=== PATIENT | female | born 1995 | race Hispanic/Latino ===

== ENCOUNTER 2017-06-21 10:54 | Inpatient (IN) | payer OTHER ==
[2017-06-21] MEDS ORDERED: SUBLIMAZE IV PRN (12:06)
[2017-06-21] MEDS ORDERED: ePHEDrine SULFATE IV PRN (12:06)
[2017-06-21] MEDS ORDERED: PHENERGAN PO PRN ×2 (12:06→15:23)
[2017-06-21] MEDS ORDERED: STADOL IV PRN (12:06)
[2017-06-21] MEDS ORDERED: NARCAN 0.4 MG/1 ML IV PRN (12:06)
[2017-06-21] MEDS ORDERED: ZOFRAN IV PRN ×2 (12:06→15:23)
[2017-06-21] MEDS ORDERED: POLYCILLIN/NS 2 GM/100 ML 2 GM/100 ML BAG IV ONE (12:06)
[2017-06-21] MEDS ORDERED: XYLOCAINE 2% INFILTRATI ONE ×2 (12:06→15:11)
--- NOTE | 2017-06-21 12:11 | History and Physical Report ---
History of Present Illness Date of examination: 06/21/17 Date of admission: 06/21/17 11:56 Chief complaint: Labor History of present illness: Pt is a 22yo WF EDC06/20/17; EGA 40 1/7 weeks presents to L&D complaining of RUC's q 2-4mins. She patterson 1 visit at [facility] and that visit was unremarkable. record is available and GBS is unknown. Past History Past Medical History: no pertinent history Past Surgical History: no surgical history Family/Genetic History: none Social history: no significant social history, single - Obstetrical History Expected Date of Delivery: 06/20/17 Actual Gestation: 40 Week(s) 1 Day(s) : 2 Medications and Allergies Allergies Allergy/AdvReac Type Severity Reaction Status Date / Time No Known Allergies Allergy Verified 06/21/17 12:05 Home Medications Medication Instructions Recorded Confirmed Last Taken Type Tablet 1 tab PO DAILY 12/25/15 12/25/15 12/24/15 09:00 History Active Meds: Active Medications Butorphanol Tartrate (Stadol) 2 mg IV Q2H PRN PRN Reason: Pain , Severe (7-10) Ephedrine Sulfate (Ephedrine Sulfate) 10 mg IV Q2M PRN PRN Reason: Hypotension Stop: 06/21/17 12:11 Fentanyl (Sublimaze) 100 mcg IV Q2H PRN PRN Reason: Labor Pain Ampicillin Sodium (Polycillin/Ns 1 Gm/50 Ml) 1 gm in 50 mls @ 100 mls/hr IV Q4HR ALONDRA PRN Reason: Protocol Ampicillin Sodium (Polycillin/Ns 2 Gm/100 Ml) 2 gm in 100 mls @ 100 mls/hr IV ONCE ONE PRN Reason: Protocol Stop: 06/21/17 13:05 Lactated Ringer's (Lactated Ringers) 1,000 mls @ 125 mls/hr IV DIRECT ALONDRA Oxytocin/Sodium Chloride (Pitocin/Ns 20 Unit/1000ml Drip) 20 units in 1,000 mls @ 125 mls/hr IV DIRECT ALONDRA Oxytocin/Sodium Chloride (Pitocin/Ns 30 Unit/500ml) 30 units in 500 mls @ 1 mls /hr IV TITR ALONDRA; 1 MILLIUNITS/MIN PRN Reason: Protocol Lidocaine (Xylocaine 2%) 20 ml INFILTRATI ONCE ONE Stop: 06/21/17 12:07 Mineral Oil (Mineral Oil) 30 ml PO QHS PRN PRN Reason: Constipation Naloxone HCl (Narcan 0.4 Mg/1 Ml) 0.1 mg IV Q2MIN PRN PRN Reason: Res Rate </= 8 or 02 SAT < 92% Ondansetron HCl (Zofran) 4 mg IV Q8H PRN PRN Reason: Nausea And Vomiting Promethazine HCl (Phenergan) 25 mg PO Q6H PRN PRN Reason: Nausea And Vomiting Terbutaline Sulfate (Brethine) 0.25 mg SUB-Q ONCE PRN PRN Reason: Hyperstimulation/Hypertonicity Stop: 06/21/17 12:07 Terbutaline Sulfate (Brethine) 0.25 mg IVP ONCE PRN PRN Reason: Hyperstimulation/Hypertonicity Stop: 06/21/17 12:07 Review of Systems All systems: negative - Vital Signs Vital signs: Vital Signs Pulse Pulse Ox 70 82 L 06/21/17 11:55 06/21/17 11:55 Temp Pulse Resp BP Pulse Ox 97.4 F L 106 H 24 97/59 99 06/21/17 12:05 06/21/17 12:08 06/21/17 12:05 06/21/17 12:05 06/21/17 12:08 - Physical Exam Breasts: Positive: deferred Cardiovascular: Regular rate Lungs: Positive: Clear to auscultation Abdomen: Positive: normal appearance Genitourinary (Female): Positive: normal external genitalia Vagina: Positive: normal moisture Uterus: Positive: enlarged Extremities: Positive: normal - Obstetrical FHR: category 1 Uterine Contraction Monitor Mode: External Cervical Dilatation: 8 Cervical Effacement Percentage: 100 station: -2 Uterine Contraction Pattern: Regular Uterine Tone Measurement Phase: Contraction Uterine Contraction Intensity: Moderate Results Result Diagrams: 06/21/17 12:10 All other labs normal. Assessment and Plan - Patient Problems (1) 40 weeks gestation of Onset Date: 06/21/17 Current Visit: Yes Status: Acute Plan to address problem: A: IUP @ 40 1/7 weeks in labor Limited care Unknown GBS P: Admit to L&D for expectant vaginal delivery IV Ampicillin (2) Limited care in third trimester Onset Date: 06/21/17 Current Visit: Yes Status: Acute
[2017-06-21] MEDS ORDERED: BRETHINE SUB-Q PRN (12:22)
[2017-06-21] MEDS ORDERED: BRETHINE IVP PRN (12:22)
[2017-06-21 12:45] LABS: Hematocrit 33.6 % (30.3-42.9); Hemoglobin 10.5 gm/dl (10.1-14.3); Mean Corpuscular HGB Conc 31 % (30-34); Mean Corpuscular Volume 74 fl (79-97); Platelet Count 182 K/mm3 (140-440); Red Blood Count 4.55 M/mm3 (3.65-5.03); Red Cell Distribution Width 15.8 % (13.2-15.2); White Blood Count 11.7 K/mm3 (4.5-11.0)
[2017-06-21 12:48] LABS: Mean Corpuscular Hemoglobin 23 pg (28-32)
[2017-06-21] MEDS ORDERED: LACTATED RINGERS 1,000 ML IV SCH (13:00)
[2017-06-21] MEDS ORDERED: PITOCin/NS 30 UNIT/500ML 30 UNITS/500 ML BAG IV SCH (13:00)
[2017-06-21] MEDS ORDERED: PITOCin/NS 20 UNIT/1000ML DRIP 20 UNITS/1,000 ML BAG IV SCH ×2 (13:00→16:00)
[2017-06-21] MEDS ORDERED: BENADRYL PO PRN (15:23)
[2017-06-21] MEDS ORDERED: PHENERGAN PR PRN (15:23)
[2017-06-21] MEDS ORDERED: MILK OF MAGNESIA PO PRN (15:23)
[2017-06-21] MEDS ORDERED: TYLENOL PO PRN (15:23)
[2017-06-21] MEDS ORDERED: TUCKS PAD TP PRN (15:23)
[2017-06-21] MEDS ORDERED: LANSINOH TP PRN (15:23)
[2017-06-21] MEDS ORDERED: DULCOLAX PR PRN (15:23)
--- NOTE | 2017-06-21 15:33 | Procedure Note ---
OB Delivery Note - Delivery Date of Delivery: 06/21/17 Surgeon: CHARLY LIZ Estimated blood loss: 200cc - Vaginal Delivery presentation: vertex Delivery position: OA Intrapartum events: none Delivery induction: none Delivery augmentation: rupture of membranes Delivery monitor: external FHT, external uterine Route of delivery: Delivery placenta: spontaneous Delivery cord: nuchal cord (x2), 3 umbilical vessels Episiotomy: none Delivery laceration: 1st degree (perineal) Delivery repair: vicryl Anesthesia: none Delivery comments: Infant delivered OA, and nuchal cord x2 easily reduced, and infant placed on Mom 's chest for [id number]-[id number] bonding and delayed cord clamping. - A at 1 minute: 8 at 5 minutes: 9 Infant Gender: Male ([id number])
[2017-06-21] MEDS ORDERED: SODIUM CHLORIDE FLUSH SYRINGE 10 ML IV SCH (16:00)
[2017-06-21] MEDS ORDERED: POLYCILLIN/NS 1 GM/50 ML 1 GM/50 ML BAG IV SCH (16:09)
[2017-06-21] MEDS: MOTRIN PO SCH (18:02)
[2017-06-21] MEDS: NORCO 5/325 PO PRN (20:15)
[2017-06-21] MEDS ORDERED: MINERAL OIL PO PRN (22:00)
[2017-06-22] MEDS: FEOSOL PO SCH ×3 (00:52→21:43)
[2017-06-22] MEDS: MOTRIN PO SCH ×4 (00:52→23:40)
[2017-06-22 03:51] LABS: Hematocrit 29.2 % (30.3-42.9); Hemoglobin 9.4 gm/dl (10.1-14.3)
[2017-06-22] MEDS ORDERED: BOOSTRIX IM ONE (06:00)
[2017-06-22] MEDS: PRENATAL VITAMIN PO SCH (10:36)
[2017-06-22] MEDS: COLACE PO SCH ×2 (10:36→21:50)
--- NOTE | 2017-06-22 11:24 | Progress Note ---
Assessment and Plan - Patient Problems (1) 40 weeks gestation of Onset Date: 06/21/17 Current Visit: Yes Status: Resolved (2) Limited care in third trimester Onset Date: 06/21/17 Current Visit: Yes Status: Resolved (3) (normal spontaneous vaginal delivery) Onset Date: 06/22/17 Current Visit: Yes Status: Resolved Plan to address problem: A: S/P - PPD #1 Doing well Asymptomatic anemia - stable P: May go home today Subjective - Subjective Date of service: 06/22/17 Principal diagnosis: s/p - PPD #1 Interval history: Pt is feeling well without complaints. Bleeding improved. Patient reports: appetite normal, voiding normally, pain well controlled, ambulating normally : doing well, bottle feeding Objective - Vital Signs Latest vital signs: Vital Signs Temp Pulse Resp BP Pulse Ox 06/22/17 08:38 98.6 F 84 16 94/56 06/22/17 06:02 18 06/22/17 01:52 18 06/22/17 01:00 98.5 F 85 18 110/66 06/22/17 00:52 18 06/21/17 21:15 98.2 F 85 18 119/76 06/21/17 20:15 18 06/21/17 17:25 98.4 F 94 H 20 102/57 06/21/17 16:31 113 H 95 06/21/17 16:28 111 H 93 06/21/17 16:26 99 H 97 06/21/17 16:22 93 H 94 06/21/17 16:21 97 H 85/48 96 06/21/17 16:17 93 H 94 06/21/17 16:16 101 H 97 06/21/17 16:11 102 H 97 06/21/17 16:06 92 H 103/59 98 06/21/17 16:01 89 97 06/21/17 15:56 109 H 97 06/21/17 15:51 105 H 120/55 98 06/21/17 15:46 95 H 97 06/21/17 15:41 99 H 95 06/21/17 15:36 94 H 119/51 96 06/21/17 15:31 95 H 97 06/21/17 15:26 101 H 97 06/21/17 15:21 102 H 98 06/21/17 14:42 121 H 96 08/25/17 14:37 117 H 95 06/21/17 14:31 122 H 90 06/21/17 14:25 120 H 95 06/21/17 14:22 110 H 94 06/21/17 14:19 105 H 96 06/21/17 14:14 36 L 90 06/21/17 14:08 91 H 95 06/21/17 14:03 114 H 93 06/21/17 14:00 119 H 94 06/21/17 13:58 95 H 95 06/21/17 13:53 109 H 93 06/21/17 13:48 98 H 96 06/21/17 13:43 109 H 96 06/21/17 13:38 105 H 93 06/21/17 13:33 104 H 93 06/21/17 13:28 108 H 95 06/21/17 13:23 103 H 95 06/21/17 13:18 99 H 91 06/21/17 13:16 84 06/21/17 13:13 109 H 88 06/21/17 13:09 117 H 94 06/21/17 13:08 103 H 95 06/21/17 13:03 103 H 82 L 06/21/17 13:01 96 H 93 06/21/17 12:58 113 H 97 06/21/17 12:55 94 H 94 06/21/17 12:53 116 H 96 06/21/17 12:48 100 H 99 06/21/17 12:47 109 H 87 06/21/17 12:43 105 H 99 06/21/17 12:38 111 H 99 06/21/17 12:33 116 H 99 06/21/17 12:28 112 H 98 06/21/17 12:23 109 H 99 06/21/17 12:18 112 H 98 06/21/17 12:13 115 H 99 06/21/17 12:08 106 H 99 06/21/17 12:05 97.4 F L 123 H 24 97/59 06/21/17 12:03 99 06/21/17 11:57 187 H 82 L 06/21/17 11:56 68 82 L 06/21/17 11:55 70 82 L Intake and Output 06/21/17 06/22/17 06/22/17 22:59 06:59 14:59 Intake Total 365 240 Output Total 800 400 Balance -435 -160 Intake: IV 125 Right Hand 125 Intake, Free Water 240 240 Output: Urine 800 400 Void 800 400 Other: Total, Output Amount 800 400 Estimated Blood Loss 200 - Exam Breasts: Present: deferred Cardiovascular: Present: Regular rate Lungs: Present: Clear to auscultation Abdomen: Present: normal appearance, soft Uterus: Present: normal, firm, fundal height below umbilicus Extremities: Present: normal - Labs Labs: Abnormal lab results 06/21/17 06/22/17 Range/Units 12:10 03:25 WBC 11.7 H (4.5-11.0) K/mm3 Hgb 9.4 L (10.1-14.3) gm/dl Hct 29.2 L (30.3-42.9) % MCV 74 L (79-97) fl MCH 23 L (28-32) pg RDW 15.8 H (13.2-15.2) % Laboratory Tests 06/21/17 06/21/17 06/22/17 12:10 12:10 03:25 WBC 11.7 H RBC 4.55 Hgb 10.5 9.4 L Hct 33.6 29.2 L MCV 74 L MCH 23 L MCHC 31 RDW 15.8 H Plt Count 182 Blood Type A POSITIVE Antibody Screen Negative
--- NOTE | 2017-06-22 11:28 | Discharge Summary ---
Providers - Providers Date of Admission: 06/21/17 11:56 Date of discharge: 06/23/17 Attending physician: CHARLY LIZ Primary care physician: CHARLY LIZ Hospitalization Reason for admission: active labor, IUP at term Delivery: Episiotomy: none Laceration: 1st degree Other procedures: none complications: none Discharge diagnosis: IUP at term delivered [place] baby: male Hospital course: Unremarkable. Condition at discharge: Good Disposition: DC-01 TO HOME OR SELFCARE - Discharge Diagnoses (1) 40 weeks gestation of Status: Resolved (2) Limited care in third trimester Status: Resolved (3) (normal spontaneous vaginal delivery) Status: Resolved Plan - Discharge Medications Prescriptions: Ferrous Sulfate [Feosol 325 MG tab] 325 mg PO BID #60 tablet Ibuprofen [Motrin 600 MG tab] 600 mg PO Q6HR #30 tablet Vit-Fe Fumar-FA [ Vitamin] 1 each PO QDAY #30 tablet - Provider Discharge Summary Activity: routine, no sex for 6 weeks, no heavy lifting 4 weeks, no strenuous exercise Diet: routine Instructions: routine Additional instructions: [] Smoking cessation referral if applicable(refer to patient education folder for contact #) [] Refer to [facility]'s [facility] Booklet Call your doctor immediately for: * Fever > 100.5 * Heavy vaginal bleeding ( >1 pad per hour) * Severe persistent headache * Shortness of breath * Reddened, hot, painful area to leg or breast * Drainage or odor from incision. * Keep incision clean and dry at all times and follow doctor's instructions regarding bathing/showering - Follow up plan Follow up: CHARLY LIZ MD [Primary Care Provider] - 6 Weeks
[2017-06-22] MEDS ORDERED: Fluarix Quad 2017-2018(36 MOS+) IM ONE (12:27)
[2017-06-22] MEDS ORDERED: M-M-R II VACCINE SUB-Q ONE (15:23)
[2017-06-22] MEDS ORDERED: PERCOCET 5/325 PO PRN (21:48)
[2017-06-23] MEDS: MOTRIN PO SCH (10:32)
[2017-06-23] MEDS: COLACE PO SCH (10:32)
[2017-06-23] MEDS: NORCO 5/325 PO PRN (10:33)
[2017-06-23] MEDS: PRENATAL VITAMIN PO SCH (10:33)
[2017-06-23] MEDS: FEOSOL PO SCH (10:33)
[2017-06-23 13:12] VITALS: BP 136/86
== END 2017-06-23 13:30 | disposition home or self-care (01) | DRG 775 ==
LOC: TRG 10:54 → LD 11:56 → OB 17:33
PROVIDERS: ADMIT Obstetrics & Gynecology; ATTEND Obstetrics & Gynecology
PROC: 10E0XZZ Delivery of Products of Conception, External Approach (ICD-10-PCS; principal; 2017-06-21)
PROC: 10907ZC Drainage of Amniotic Fluid, Therapeutic from Products of Conception, Via Natural or Artificial Opening (ICD-10-PCS; 2017-06-21)
PROC: 0HQ9XZZ Repair Perineum Skin, External Approach (ICD-10-PCS; 2017-06-21)
PROC: 3E0234Z Introduction of Serum, Toxoid and Vaccine into Muscle, Percutaneous Approach (ICD-10-PCS; 2017-06-22)
DX: O69.81X0 Labor and delivery complicated by cord around neck, without compression, not applicable or unspecified (principal); O09.33 Supervision of pregnancy with insufficient antenatal care, third trimester; D64.9 Anemia, unspecified; O90.81 Anemia of the puerperium; O70.0 First degree perineal laceration during delivery; Z3A.40 40 weeks gestation of pregnancy; Z37.0 Single live birth; Z23 Encounter for immunization
CPT/HCPCS: 36415; 85014; 85018; 85027; 86850; 86900; 86901; 90471; 90686; 90715; J0290; J2590; J3010; J7120

== ENCOUNTER 2019-03-26 07:42 | Inpatient (IN) | payer OTHER ==
[2019-03-26] MEDS ORDERED: LACTATED RINGERS 500 ML IV ONE (08:02)
[2019-03-26] MEDS ORDERED: ZOFRAN IV PRN ×3 (08:20→15:04)
[2019-03-26] MEDS ORDERED: TYLENOL PO PRN ×2 (08:20→12:54)
[2019-03-26] MEDS ORDERED: AMPICILLIN/NS 2 GM/100 ML 2 GM/100 ML BAG IV ONE (09:00)
[2019-03-26] MEDS ORDERED: MAGNESIUM SULFATE 40GM/1000ML 40 GM/1,000 ML BAG IV SCH (09:00)
[2019-03-26] MEDS ORDERED: LACTATED RINGERS 1,000 ML IV SCH ×2 (09:00→11:00)
[2019-03-26] MEDS ORDERED: MAGNESIUM SULFATE 4GM/100ML 4 GM/100 ML BAG IV ONE (09:00)
[2019-03-26 09:55] LABS: Basophils % (Auto) 0.3 % (0.0-1.8); Eosinophils % (Auto) 0.1 % (0.0-4.3); Hematocrit 27.7 % (30.3-42.9); Hemoglobin 8.9 gm/dl (10.1-14.3); Lymphocytes # (Auto) 2.3 K/mm3 (1.2-5.4); Lymphocytes % (Auto) 20.5 % (13.4-35.0); Mean Corpuscular HGB Conc 32 % (30-34); Mean Corpuscular Volume 74 fl (79-97); Monocytes # (Auto) 0.6 K/mm3 (0.0-0.8); Monocytes % (Auto) 5.4 % (0.0-7.3); Red Blood Count 3.73 M/mm3 (3.65-5.03)
[2019-03-26 09:59] LABS: Platelet Count 96 K/mm3 (140-440)
[2019-03-26] MEDS ORDERED: COLACE PO PRN (10:00)
[2019-03-26] MEDS ORDERED: CELESTONE SOLUSPAN IM SCH (10:00)
[2019-03-26] MEDS ORDERED: PRENATAL VITAMIN PO SCH (10:00)
[2019-03-26 10:01] LABS: Bacteria,Urine 1+ /HPF (Negative); Bilirubin,Urine NEG (Negative); Blood,Urine NEG (Negative); Mucus,Urine 3+ /HPF; Urobilinogen,Urine < 2.0 mg/dL (<2.0)
--- NOTE | 2019-03-26 10:08 | History and Physical Report ---
History of Present Illness Date of examination: 03/26/19 Date of admission: 03/26/19 Chief complaint: SIUP at 33 weeks with bleeding. History of present illness: Patient is a 24 year old , LMP unknown, EDC 05/14/19 at 33 weeks gestation who presented to triage complaining of having sudden-onset of vaginal bleeding since 5 AM today, and contractions an hour later. She is not sure if she leaked any fluid but she said that she felt a gush before the bleeding started. She is a patient of [facility] but she stopped going for care since October and she does not recall how far she was when she last went there. She said that she had her first sonogram early but she does recall how far she was at that time. She did not have an anatomy scan or GCT. tracing is CAT1. Joaquin: Q2 mins. Speculum exam: cervix 2 cm/long, moderate bleeding. Temp: 101.6F. Fundal height is 40 cm. Past History Past Surgical History: no surgical history Family/Genetic History: none Social history: no significant social history - Obstetrical History Expected Date of Delivery: 05/14/19 Actual Gestation: 34 Week(s) 2 Day(s) : 3 Para: 2 Hx # Term Pregnancies: 2 Number of Living Children: 2 Medications and Allergies Allergies Allergy/AdvReac Type Severity Reaction Status Date / Time No Known Allergies Allergy Verified 06/21/17 12:05 Home Medications Medication Instructions Recorded Confirmed Last Taken Type Tablet 1 tab PO DAILY 12/25/15 03/27/19 03/25/19 History Ferrous Sulfate [Feosol 325 MG tab] 325 mg PO BID #60 tablet 06/22/17 03/27/19 03/25/19 Rx Ibuprofen [Motrin 600 MG tab] 600 mg PO Q6HR #30 tablet 06/22/17 03/27/19 Unknown Rx Vit-Fe Fumar-FA [ 1 each PO QDAY #30 tablet 06/22/17 03/27/19 03/25/19 Rx Vitamin] Ferrous Sulfate [Feosol 325 MG tab] 325 mg PO BID #60 tablet 03/29/19 Unknown Rx Ibuprofen [Motrin 800 MG tab] 800 mg PO Q6H PRN #30 tablet 03/29/19 Unknown Rx Labetalol [Labetalol 100mg TAB] 100 mg PO BID #60 tablet 03/29/19 Unknown Rx Vit-Fe Fumar-FA [ 1 each PO QDAY #30 tablet 03/29/19 Unknown Rx Vitamin] oxyCODONE /ACETAMINOPHEN [Percocet 1 tab PO Q6H PRN #30 tablet 03/29/19 Unknown Rx 5/325 mg] Labetalol [Labetalol 200mg TAB] 200 mg PO BID #60 tablet 03/30/19 Unknown Rx Active Meds: Active Medications Acetaminophen (Tylenol) 650 mg PO Q4H PRN PRN Reason: Pain MILD(1-3)/Fever >100.5/CURRY Betamethasone Acet/Betameth SodPhos (Celestone Soluspan) 12 mg IM Q24HR ALONDRA Stop: 03/27/19 10:01 Last Admin: 03/26/19 09:35 Dose: 12 mg Documented by: Docusate Sodium (Colace) 100 mg PO Q12HR PRN PRN Reason: Constipation Lactated Ringer's (Lactated Ringers) 1,000 mls @ 125 mls/hr IV DIRECT ALONDRA Ampicillin Sodium (Ampicillin/Ns 2 Gm/100 Ml) 2 gm in 100 mls @ 100 mls/hr IV ONCE ONE; Protocol Stop: 03/26/19 09:59 Magnesium Sulfate (Magnesium Sulfate 40gm/1000ml) 40 gm in 1,000 mls @ 50 mls/hr IV DIRECT ALONDRA Last Admin: 03/26/19 09:20 Dose: 2 gm/hr, 50 mls/hr Documented by: Piperacillin Sod/Tazobactam Sod (Zosyn/Ns 3.375gm/50ml) 3.375 gm in 50 mls @ 100 mls/hr IV Q8HR ALONDRA; Protocol Multivitamins/Iron/Calcium ( Vitamin) 1 each PO QDAY ALONDRA Ondansetron HCl (Zofran) 4 mg IV Q6H PRN PRN Reason: Nausea And Vomiting - Vital Signs Vital signs: Vital Signs Pulse BP 122 H 135/98 03/26/19 07:46 03/26/19 07:46 Temp Pulse Resp BP Pulse Ox 117 H 136/90 97 03/26/19 08:33 03/26/19 08:33 03/26/19 08:29 - Physical Exam Cardiovascular: Normal S1, Normal S2 Lungs: Positive: Clear to auscultation Vulva: both: normal Adnexa: both: normal Deep Tendon Reflex Grade: Normal +2 - Obstetrical FHR: category 1 Uterine Contraction Monitor Mode: External Cervical Dilatation: 2 Cervical Effacement Percentage: 0 station: -3 Uterine Contraction Pattern: Regular Uterine Contraction Intensity: Strong/Firm Results Result Diagrams: 03/27/19 00:45 03/26/19 22:47 All other labs normal. Assessment and Plan - Patient Problems (1) 33 weeks gestation of Status: Acute (2) Vaginal bleeding Status: Acute Plan to address problem: Admit to labor floor. Routine admitting labs and labs. Ob sonogram ordered for dating, placenta location and rule out placental pathology, BPP, CONOR. Magnesium sulfate for neuroprotection and tocolysis. Celestone for FLM. Ampicillin for GBS prophylaxis. NICU consult. (3) History of inadequate care Status: Acute Plan to address problem: panel. T&S. (4) HTN (hypertension) Status: Acute Plan to address problem: Monitor BP. Hydralazine for diastolic >100. Toxemia labs ordered. Start Magnesium sulfate. UDS ordered.
[2019-03-26 10:10] LABS: Alanine Aminotransferase 7 units/L (7-56); Albumin 3.2 g/dL (3.9-5); BUN/Creatinine Ratio 23; Blood Urea Nitrogen 7 mg/dL (7-17); Calcium 8.3 mg/dL (8.4-10.2); Hemolysis Index 8
[2019-03-26 10:14] LABS: Color,Urine Yellow (Yellow)
[2019-03-26 10:15] LABS: Alanine Aminotransferase 8 units/L (7-56); Uric Acid 5.2 mg/dL (3.5-7.6)
--- NOTE | 2019-03-26 10:21 | Anesthesia Consultation ---
Anesthesia Consult and Med Hx Date of service: 03/26/19 - Airway Anesthetic Teeth Evaluation: Good ROM Head & Neck: Adequate Mental/Hyoid Distance: Adequate Mallampati Class: Class II Intubation Access Assessment: Good - Pulmonary Exam CTA: Yes - Cardiac Exam Cardiac Exam: RRR - Pre-Operative Health Status ASA Pre-Surgery Classification: ASA2 Proposed Anesthetic Plan: Spinal - Pre-Anesthesia Comment Pre-Anesthesia Comments: minimal pre-holden care, possbile abruption - Pulmonary Hx Asthma: No COPD: No Hx Pneumonia: No - Cardiovascular System Hx Hypertension: No - Central Nervous System Hx Seizures: No Hx Psychiatric Problems: No - Endocrine Hx Renal Disease: No Hx End Stage Renal Disease: No Hx Hypothyroidism: No Hx Hyperthyroidism: No - Hematic Hx Anemia: No Hx Sickle Cell Disease: No - Other Systems Hx Alcohol Use: No - Additional Comments Anesthesia Medical History Comments: h/o gallstone
--- NOTE | 2019-03-26 10:22 | Anesthesia Day of Surgery ---
Anesthesia Day of Surgery - Day of Surgery Patient Examined: Yes Patient H&P Reviewed: Yes Patient is NPO: Yes Jay's Test: N/A
[2019-03-26 10:36] LABS: Amphetamine Screen,Urine PRESUMPTIVE NEGATIVE; Benzodiazepines Screen,Urine PRESUMPTIVE NEGATIVE; Cannabinoid Screen,Urine PRESUMPTIVE NEGATIVE; Cocaine Screen,Urine PRESUMPTIVE NEGATIVE; Methadone Screen,Urine PRESUMPTIVE NEGATIVE; Opiate Screen,Urine PRESUMPTIVE NEGATIVE
[2019-03-26] MEDS ORDERED: PITOCin/NS 20 UNIT/1000ML DRIP 20 UNITS/1,000 ML BAG IV SCH ×2 (11:00→13:00)
[2019-03-26] MEDS ORDERED: REGLAN IV NR ×2 (11:00)
[2019-03-26] MEDS ORDERED: BICITRA PO NR (11:00)
[2019-03-26] MEDS ORDERED: PEPCID IV NR (11:00)
[2019-03-26] MEDS ORDERED: ANCEF/STERILE WATER 2 GM/20 ML 2 GM/20 ML SYRINGE IV NR (11:00)
--- NOTE | 2019-03-26 11:01 | Event Note ---
Date: 03/26/19 Sonogram was done at bedside. It showed an anterior placenta with a large retroplacental clot measuring 11.4 x 5.2 cm. BPP 2/8 (-2 for movement, b reathing, tone). EFW 3288 grams. H/H is 8.9/27.7, platelet is 96. Assessment/plan: .Term gestation by sonogram dating and EFW. .Placental abruption. Patient was counselled for emergency C/section. Risks and benefits were discussed with her such as infection, bleeding requiring blood transfusion, injury to the bowel, bladder and blood vessels. She expressed understanding, her questions were answered, she gave her informed consent. Anesthesia was notified. Pt is NPO. Continuous monitoring. .Anemia. Patient is crossed matched for 2 units of PRBCs. .Thrombocytopenia.
[2019-03-26] MEDS ORDERED: BICITRA ONE (11:03)
[2019-03-26] MEDS ORDERED: ANCEF/STERILE WATER 2 GM/20 ML 2 GM/20 ML SYRINGE IV ONE (11:03)
[2019-03-26] MEDS ORDERED: PEPCID IV ONE (11:03)
[2019-03-26] MEDS ORDERED: SUBLIMAZE ONE (11:14)
[2019-03-26] MEDS ORDERED: METHERGINE IM ONE (11:17)
[2019-03-26] MEDS ORDERED: ZOFRAN ONE (11:18)
[2019-03-26] MEDS ORDERED: CYTOTEC ONE (11:19)
--- NOTE | 2019-03-26 11:19 | Ultrasound Report ---
ULTRASOUND BIOPHYSICAL PROFILE: History: Bleeding Technique: Transabdominal ultrasound with Doppler interrogation. 0 - breathing movements 0 - movements 0 - posture and tone 2 - Qualitative amniotic fluid volume 2 - TOTAL SCORE OF POSSIBLE 8 Heart Rate (bpm) 152
[2019-03-26] MEDS ORDERED: HEMABATE IM ONE ×2 (11:20→11:50)
--- NOTE | 2019-03-26 11:24 | Ultrasound Report ---
OB ULTRASOUND History: vaginal bleeding. Technique: Transabdominal ultrasound with Doppler interrogation. Gestation: Single Position: Cephalic Amniotic Fluid: Within normal limits CONOR = 11 cm Placenta: Anterior Placental Grade: 2 Comment: There is a slightly hypoechoic heterogeneous area adjacent to the left-anterior edge of the placenta measuring approximately 11.4 x 5.2 cm. There is no evidence for perfusion in this area on the color Doppler images. The etiology of this is unclear but an abruption or placental hemorrhage cannot be excluded. Heart Rate: 149 BPM BPD: 9.2 cm = 37 w 4 d HC: 33.6 cm = 38 w 3 d AC: 33.2 cm = 37 w 1 d FL: 7.6 cm = 38 w 5 d HC/AC Ratio: 1.0 Cephalic Index: 84 Estimated Weight: 3288 grams LMP: 08/07/18 Clinical age = 33 w 0 d EDC: 05/14/19 US Gest. Age = 38 w 0 d EDC: 04/09/19 IMPRESSION: Viable, single intrauterine as described. Abnormal area adjacent to the left anterior edge of the placenta concerning for abruption or hemorrhage. Please correlate with the clinical presentation of the patient.
[2019-03-26] MEDS ORDERED: NACL 0.9% IR ONE (11:30)
[2019-03-26] MEDS ORDERED: WATER FOR IRRIG STERILE IR ONE (11:30)
[2019-03-26] MEDS ORDERED: NACL 0.9% 500 ML 500 ML IV ONE (11:40)
[2019-03-26 11:49] LABS: INR 0.89 (0.87-1.13)
[2019-03-26 11:50] LABS: Partial Thromboplastin Time 25.7 Sec. (24.2-36.6)
[2019-03-26] MEDS ORDERED: VERSED ONE (11:50)
[2019-03-26] MEDS ORDERED: REGLAN ONE (12:13)
[2019-03-26] MEDS ORDERED: BENADRYL ONE (12:13)
[2019-03-26] MEDS ORDERED: DECADRON ONE (12:14)
[2019-03-26] MEDS ORDERED: DILAUDID ONE (12:26)
[2019-03-26] MEDS ORDERED: TUCKS PAD TP PRN (12:54)
[2019-03-26] MEDS ORDERED: MILK OF MAGNESIA PO PRN (12:54)
[2019-03-26] MEDS ORDERED: MORPHINE IV PRN ×2 (12:54)
[2019-03-26] MEDS ORDERED: LANSINOH TP PRN (12:54)
[2019-03-26] MEDS ORDERED: ANUCORT-HC PR PRN (12:54)
[2019-03-26] MEDS ORDERED: SENOKOT PO PRN (12:54)
[2019-03-26] MEDS ORDERED: MYLICON PO PRN (12:54)
[2019-03-26] MEDS ORDERED: PHENERGAN PR PRN ×2 (12:54→15:04)
[2019-03-26] MEDS ORDERED: NARCAN 0.4 MG/1 ML IV PRN ×2 (12:54→15:04)
[2019-03-26] MEDS ORDERED: SODIUM CHLORIDE FLUSH SYRINGE 10 ML IV NR (13:00)
--- NOTE | 2019-03-26 13:00 | Operative Report ---
Operative Report Operative Report: Preoperative diagnosis 1. SIUP at term gestation in active labor. 2. Placental abruption. 3. Active bleeding. 4. Anemia. 5. Thrombocytopenia. 6. Elevated BP. Postoperative diagnosis: Same. Procedure: Emergency Primary low-transverse section. Surgeon: Dr. Tam Skiver Operator: Dr. Leslie Houser. Anesthesia: Spinal-epidural. IVF: RL 500 cc. EBL: 500 cc. Urine: 200 cc clear Complications: Intraoperative uterine atony responsive to IV Pitocin and myometrial Hemabate. Intraoperative findings: 1. Intraperitoneal blood of unknown origin. 2. Placental abruption by >75% with Couvelaire uterus. 3. A male found in an KEVIN position, delivered at 11:42 AM, Apgars 7 at 1 minute and 9 at 5 minutes, weight 7 lbs. 12 oz. 4. Normal fallopian tubes and ovaries bilaterally. Procedure details: Risks, benefits, and alternatives of the procedure were discussed in detail with the patient which included but not limited to the risk of infection, hemorrhage requiring blood transfusion, injury to the bowel or bladder and blood vessels. The patient expressed understanding, her questions were answered, and she gave informed consent. The patient was taken to the operating room with an IV fluid infusing Ringers lactate. In the operating room, she was placed in a sitting position and given a combined spinal-epidural anesthesia. Then, she was placed in a dorsal supine position with a leftward tilt. Rodriguez catheter in Venodyne boots were placed. The abdomen was washed and she was prepared and draped in usual sterile fashion. After confirming adequate anesthesia, the Pfannenstiel skin incision was made in the lower abdomen about 2 cm above the pubic symphysis using the scalpel. This incision was carried down to the underlying fascia using the Bovie. The fascia was opened bilaterally in a curvilinear fashion using the Bovie. 2 straight Kocker clamps were used to grasp the upper edge of the fascia from which the underlying rectus abdominis muscles was dissected off using the Bovie. A similar procedure was done with the lower edge of the fascia to dissect the underlying rectus abdominis muscle. The muscle was bluntly from the midline by pulling. The parietal peritoneum was grasped with 2 hemostat clamps and entered sharply using Metzenbaum scissors. There was hemoperitoneum which was evacuated with suction. A quick survey of the anatomy revealed a gravid Couvelaire uterus, normal fallopian tubes and ovaries bilaterally. A bladder flap was created. Nish'O retractor was placed in the incision for proper visualization. A low transverse incision was made in the lower uterine segment using the scalpel and extended bilaterally in a curvilinear fashion using ba ndage scissors. There was large amount of bloody amniotic fluid. The placenta was almost entirely detached with large amount of dark clots all over the uterine cavity. The infant's head was palpated, brought to the incision and delivered atraumatically followed by the delivery of the shoulders and the rest of the body at 11:42 AM. The cord was clamped 2 and cut and the was handed off to the awaiting NICU team. The was a male, Apgars were 7 at 1 minute and 9 at 5 minutes, weight was 7 pounds and 12 ounces. Cord gas was sent and cord blood was collected. The placenta was delivered manually, it was complete with a three-vessel cord and abrupted by over 75%. The uterine cavity was cleaned of clots and debris using dry lap sponges. The uterine incision was repaired in a running locked fashion using 0 Vicryl sutures. A second layer of imbrication was placed. There was uterine atony which respnded to IV pitocin and IM hemabate. The gutters were cleaned of clots and debris using dry lap sponges. After confirming adequate hemostasis, the abdominal cavity was explored in an effort to find the source of the hemoeritoneum. No active bleeding site was found and there was no further hemoperitoneum at that point. The instruments were removed from the abdominal cavity. The rectus muscle was reapproximated in an interrupted fashion using 0 Vicryl sutures. The fascia was closed in a running fashion using 0 Vicryl sutures. The subcutaneous adipose layer was closed with 2.0 chromic suture. The skin was closed in a subcutaneous fashion using 4 Vicryl on a Roman needle. Sterile dressing was placed. The counts of laps, needles, sponges, and instruments were correct 2. The patient tolerated the procedure well, she was taken to the recovery room in a stable condition.
[2019-03-26] MEDS ORDERED: PHENERGAN PO PRN (15:04)
--- NOTE | 2019-03-26 15:05 | Post Anesthesia Evaluation ---
- Post Anesthesia Evaluation Patient Participated: Yes Airway Patent: Yes Stable Respiratory Function: Yes Nausea/Vomiting: No Temp > 96.8F: Yes Pain Manageable: Yes Adequeate Hydration: Yes Anesthesia Complications: No Block Receding Appropriately: Yes Patient on Ventilator: No
[2019-03-26] MEDS: ZOSYN/NS 3.375GM/50ML 3.375 GM/50 ML BAG IV SCH (15:56)
[2019-03-26] MEDS: D5LR 1,000 ML IV SCH (15:57)
[2019-03-26] MEDS ORDERED: SODIUM CHLORIDE FLUSH SYRINGE 10 ML IV SCH (16:00)
[2019-03-26 17:45] LABS: Basophils % (Auto) 0.3 % (0.0-1.8); Hematocrit 32.4 % (30.3-42.9); Hemoglobin 10.6 gm/dl (10.1-14.3); Lymphocytes # (Auto) 1.1 K/mm3 (1.2-5.4); Lymphocytes % (Auto) 8.3 % (13.4-35.0); Mean Corpuscular HGB Conc 33 % (30-34); Mean Corpuscular Volume 78 fl (79-97); Monocytes # (Auto) 0.4 K/mm3 (0.0-0.8); Monocytes % (Auto) 2.7 % (0.0-7.3); Red Blood Count 4.15 M/mm3 (3.65-5.03); Red Cell Distribution Width 17.8 % (13.2-15.2)
[2019-03-26 17:46] LABS: Platelet Count 98 K/mm3 (140-440)
[2019-03-26 23:09] LABS: Hematocrit 31.8 % (30.3-42.9); Hemoglobin 10.5 gm/dl (10.1-14.3); Mean Corpuscular HGB Conc 33 % (30-34); Mean Corpuscular Volume 77 fl (79-97); Platelet Count 105 K/mm3 (140-440); Red Blood Count 4.13 M/mm3 (3.65-5.03); Red Cell Distribution Width 17.7 % (13.2-15.2)
[2019-03-26 23:30] LABS: Alanine Aminotransferase 7 units/L (7-56)
[2019-03-27] MEDS: ZOSYN/NS 3.375GM/50ML 3.375 GM/50 ML BAG IV SCH ×3 (00:11→16:53)
[2019-03-27 01:01] LABS: Hematocrit 31.4 % (30.3-42.9); Hemoglobin 10.2 gm/dl (10.1-14.3)
[2019-03-27] MEDS: D5LR 1,000 ML IV SCH (01:35)
[2019-03-27 01:51] LABS: Uric Acid 4.5 mg/dL (3.5-7.6)
[2019-03-27] MEDS: FEOSOL PO SCH (10:12)
[2019-03-27] MEDS: PRENATAL VITAMIN PO SCH (10:12)
[2019-03-27] MEDS: PERCOCET 5/325 PO PRN ×2 (10:12→20:37)
--- NOTE | 2019-03-27 11:26 | Progress Note ---
Assessment and Plan A: POD #1 s/p Primary C/S Anemia s/p Blood transfusion Pain well controlled stable P: Follow Routine PostOp Orders Anticipate discharge in 24-48 hrs Subjective - Subjective Date of service: 03/27/19 Principal diagnosis: POD#1 s/p Primary c/s Patient reports: appetite normal, voiding normally, pain well controlled, flatus, ambulating normally, no bowel movement [place]: doing well Objective - Vital Signs Latest vital signs: Vital Signs Temp Pulse Resp BP BP Pulse Ox 03/27/19 08:50 97.7 F 57 L 24 140/86 97 03/26/19 23:41 63 135/84 97 03/26/19 23:40 97.7 F 68 20 135/84 96 03/26/19 21:15 98.0 F 71 18 148/88 98 03/26/19 19:38 97.3 F L 80 141/105 96 03/26/19 15:00 98.6 F 79 19 159/99 03/26/19 14:30 98.3 F 79 19 147/102 03/26/19 13:28 76 16 149/97 98 03/26/19 13:15 77 18 129/89 98 03/26/19 13:00 80 18 127/72 98 03/26/19 12:50 79 12 90/55 98 03/26/19 12:47 98.8 F 96 H 12 138/85 98 Intake and Output 03/26/19 03/27/19 03/27/19 23:59 07:59 15:59 Intake Total 1050 50 Output Total 3450 900 Balance -2400 50 -900 Intake: IV 1050 50 D5lr 1,000 ml @ 125 mls/ 1000 hr IV DIRECT ALONDRA Rx#: [id number] ZOSYN/NS 3.375GM/50ML 3. 50 50 375 gm In 50 ml @ 100 mls /hr IV Q8HR ALONDRA Rx#: [id number] Output: Urine 3450 900 Indwelling Catheter 2850 900 Other: Total, Output Amount 900 900 Voiding Method Indwelling Catheter # Voids 1 Indwelling Catheter 1 1 - Exam Breasts: Present: normal Cardiovascular: Present: Regular rate, Normal S1, Normal S2, No murmurs Lungs: Present: Clear to auscultation, Normal air movement Abdomen: Present: normal appearance, soft, tenderness (as expected post-op), normal bowel sounds. Absent: distention Vulva: both: normal Uterus: Present: firm, fundal height below umbilicus (-2) Extremities: Present: normal Deep Tendon Reflex Grade: Normal +2 Incision: Present: normal, dry, intact, dressed (Pressure dressing CDI) - Labs Labs: Abnormal lab results 03/26/19 03/26/19 03/26/19 Range/Units 09:07 12:09 17:16 WBC 13.1 H (4.5-11.0) K/mm3 MCV 78 L (79-97) fl MCH 26 L (28-32) pg RDW 17.8 H (13.2-15.2) % Plt Count 98 L (140-440) K/mm3 Lymph % (Auto) 8.3 L (13.4-35.0) % Lymph # 1.1 L (1.2-5.4) K/mm3 Seg Neutrophils % 88.7 H (40.0-70.0) % Seg Neutrophils # 11.7 H (1.8-7.7) K/mm3 POC ABG pH 7.006 L (7.35-7.45) Creatinine (0.7-1.2) mg/dL Lactate Dehydrogenase (91-180) units/L Crossmatch See Detail 03/26/19 03/26/19 Range/Units 22:47 22:47 WBC 16.6 H (4.5-11.0) K/mm3 MCV 77 L (79-97) fl MCH 25 L (28-32) pg RDW 17.7 H (13.2-15.2) % Plt Count 105 L (140-440) K/mm3 Lymph % (Auto) (13.4-35.0) % Lymph # (1.2-5.4) K/mm3 Seg Neutrophils % (40.0-70.0) % Seg Neutrophils # (1.8-7.7) K/mm3 POC ABG pH (7.35-7.45) Creatinine 0.3 L (0.7-1.2) mg/dL Lactate Dehydrogenase 374 H (91-180) units/L Crossmatch
[2019-03-27] MEDS: IBUPROFEN PO PRN (16:54)
[2019-03-28] MEDS: ZOSYN/NS 3.375GM/50ML 3.375 GM/50 ML BAG IV SCH ×4 (00:32→23:07)
[2019-03-28] MEDS: FEOSOL PO SCH (10:24)
[2019-03-28] MEDS: PRENATAL VITAMIN PO SCH (10:24)
[2019-03-28] MEDS: PERCOCET 5/325 PO PRN ×3 (10:25→23:10)
--- NOTE | 2019-03-28 12:37 | Progress Note ---
Assessment and Plan - Patient Problems (1) S/P Onset Date: 03/28/19 Current Visit: Yes Status: Resolved Plan to address problem: A: S/P C Section - POD #2 Doing well Thrombocytopenia - improving P: Continue RPOC Anticipate discharge in 24-48hrs (2) Thrombocytopenia affecting Onset Date: 03/28/19 Current Visit: Yes Status: Resolved Subjective - Subjective Date of service: 03/28/19 Principal diagnosis: POD#2 s/p Primary c/s Patient reports: appetite normal, voiding normally, pain well controlled, flatus, ambulating normally, no dizzy ambulation, no nauseated [place]: doing well Objective - Vital Signs Latest vital signs: Vital Signs Temp Pulse Resp BP BP Pulse Ox 03/28/19 08:00 97.6 F 83 18 112/84 03/28/19 00:12 98.5 F 78 20 130/86 97 03/27/19 17:28 97.9 F 20 136/94 03/27/19 16:54 20 Intake and Output 03/27/19 03/28/19 03/28/19 22:59 06:59 14:59 Intake Total 240 50 480 Balance 240 50 480 Intake: IV 50 ZOSYN/NS 3.375GM/50ML 3. 50 375 gm In 50 ml @ 100 mls /hr IV Q8HR [facility] Rx#: [id number] Oral 240 480 Other: Total, Intake Amount 240 480 # Voids Void 1 - Exam Abdomen: Present: normal appearance, soft Uterus: Present: normal, firm Extremities: Present: normal Incision: Present: normal, dry, intact, dressed
[2019-03-28] MEDS: IBUPROFEN PO PRN ×2 (18:10→23:10)
[2019-03-29] MEDS: ZOSYN/NS 3.375GM/50ML 3.375 GM/50 ML BAG IV SCH ×2 (08:05→17:00)
[2019-03-29] MEDS: NORMODYNE PO SCH ×2 (08:05→21:39)
[2019-03-29] MEDS: FEOSOL PO SCH (08:06)
[2019-03-29] MEDS: PRENATAL VITAMIN PO SCH (08:06)
[2019-03-29] MEDS: PERCOCET 5/325 PO PRN ×3 (09:32→23:19)
[2019-03-29] MEDS: IBUPROFEN PO PRN ×3 (12:21→23:19)
--- NOTE | 2019-03-29 13:28 | Discharge Summary ---
Providers - Providers Date of Admission: 03/26/19 10:57 Date of discharge: 03/29/19 Attending physician: CHARLY LIZ Primary care physician: CHARLY LIZ Hospitalization Reason for admission: IUP - , vaginal bleeding, rupture of membranes Delivery: Procedure: section, primary low transverse Episiotomy: none Incision: normal, dry, intact Other procedures: none complications: none Discharge diagnosis: delivery [place] baby: male Hospital course: Patient is a 24 year old ; EDC 05/14/19; EGA 33 0/7 weeks who presented to triage complaining of having sudden-onset of vaginal bleeding followed by contractions. She was not sure if she leaked any fluid but she said that she felt a gush before the bleeding started. Sonogram was done at bedside that showed an anterior placenta with a large retroplacental clot. BPP 2/8 (-2 for movement, breathing, tone). H/H was 8.9/27.7 and Platelet is 96k. She underwent an emergency C/section for delivery of a viable male and tolerated the procedure well. By POD #2 she was tolerating a reg diet without nausea or vomiting, ambulating and voiding without difficulty. She was therefore discharged to home on POD #3 in stable condition. Condition at discharge: Good Disposition: [id number] TO HOME OR SELFCARE - Discharge Diagnoses (1) S/P Status: Resolved (2) Thrombocytopenia affecting Status: Resolved Plan - Discharge Medications Prescriptions: Ferrous Sulfate [Feosol 325 MG tab] 325 mg PO BID #60 tablet Labetalol [Labetalol 100mg TAB] 100 mg PO BID #60 tablet Ibuprofen [Motrin 800 MG tab] 800 mg PO Q6H PRN #30 tablet PRN Reason: Pain, Mild (1-3) oxyCODONE /ACETAMINOPHEN [Percocet 5/325 mg] 1 tab PO Q6H PRN #30 tablet PRN Reason: Pain, Moderate (4-6) Vit-Fe Fumar-FA [ Vitamin] 1 each PO QDAY #30 tablet - Provider Discharge Summary Activity: routine, no sex for 6 weeks, no heavy lifting 4 weeks, no strenuous exercise Diet: routine Instructions: routine Additional instructions: [] Smoking cessation referral if applicable(refer to patient education folder for contact #) [] Refer to [facility] Booklet Call your doctor immediately for: * Fever > 100.5 * Heavy vaginal bleeding ( >1 pad per hour) * Severe persistent headache * Shortness of breath * Reddened, hot, painful area to leg or breast * Drainage or odor from incision. * Keep incision clean and dry at all times and follow doctor's instructions regarding bathing/showering Follow up in the office in 3 days for staple removal and BP check - Follow up plan Follow up: CHARLY LIZ MD [Primary Care Provider] - 7 Days
[2019-03-30] MEDS ORDERED: NORMODYNE PO SCH (11:00)
[2019-03-30] MEDS ORDERED: NORMODYNE ONE (11:09)
--- NOTE | 2019-03-30 12:32 | Progress Note ---
Assessment and Plan - Patient Problems (1) S/P Onset Date: 03/28/19 Current Visit: Yes Status: Resolved Plan to address problem: A: S/P C Section - POD #4 Doing well Thrombocytopenia - resolved Hypertension - improved on PO Labetolol P: May go home today. Follow up in office in 3 days for BP check. (2) Thrombocytopenia affecting Onset Date: 03/28/19 Current Visit: Yes Status: Resolved Subjective - Subjective Date of service: 03/30/19 Principal diagnosis: POD#4 s/p Primary c/s Interval history: Pt is feeling well without complaints. Denies headaches or blurred vision. Patient reports: appetite normal, voiding normally, flatus, ambulating normally, no dizzy ambulation, no nauseated [place]: doing well, nursing well, bottle feeding Objective - Vital Signs Latest vital signs: Vital Signs Temp Pulse Resp BP BP Pulse Ox 03/30/19 08:53 97.7 F 79 18 137/99 94 03/30/19 04:18 75 132/86 03/30/19 04:06 98.7 F 73 20 132/87 94 03/29/19 23:07 98.2 F 66 20 153/97 95 03/29/19 20:00 98.1 F 65 150/96 03/29/19 15:45 98.5 F 75 20 121/86 97 Intake and Output 03/29/19 03/30/19 03/30/19 22:59 06:59 14:59 Intake Total 480 Balance 480 Intake: Oral 480 Other: Total, Intake Amount 240 # Voids Void 1 1 1 - Exam Abdomen: Present: normal appearance, soft Uterus: Present: normal, firm, fundal height below umbilicus Extremities: Present: normal
[2019-03-30 17:10] VITALS: BP 130/91
[2019-03-30] MEDS: PERCOCET 5/325 PO PRN (19:00)
[2019-03-30] MEDS: IBUPROFEN PO PRN (19:00)
== END 2019-03-30 22:40 | disposition home or self-care (01) | DRG 786 ==
LOC: TRG 07:42 → LD 08:20 → TRG 10:56 → LD 10:57 → OB 14:00
PROVIDERS: ADMIT Obstetrics & Gynecology; ATTEND Obstetrics & Gynecology
PROC: 10D00Z1 Extraction of Products of Conception, Low, Open Approach (ICD-10-PCS; principal; 2019-03-26)
PROC: 30233N1 Transfusion of Nonautologous Red Blood Cells into Peripheral Vein, Percutaneous Approach (ICD-10-PCS; 2019-03-26)
PROC: 4A033R1 Measurement of Arterial Saturation, Peripheral, Percutaneous Approach (ICD-10-PCS; 2019-03-26)
DX: O60.14X0 Preterm labor third trimester with preterm delivery third trimester, not applicable or unspecified (principal); O45.93 Premature separation of placenta, unspecified, third trimester; Z3A.33 33 weeks gestation of pregnancy; Z37.0 Single live birth; O16.4 Unspecified maternal hypertension, complicating childbirth; O43.893 Other placental disorders, third trimester; O90.81 Anemia of the puerperium; D64.9 Anemia, unspecified; O72.3 Postpartum coagulation defects; D69.6 Thrombocytopenia, unspecified; O62.2 Other uterine inertia
CPT/HCPCS: 36415; 76816; 76819; 80053; 80307; 81001; 82565; 82803; 83615; 84450; 84460; 84550; 85014; 85018; 85025; 85027; 85610; 85730; 86592; 86706; 86762; 86850; 86900; 86901; 86920; 87040; 87086; 87806; 88307; G0378; J0290; J0690; J0702; J1100; J1170; J1200; J2210; J2250; J2270; J2405; J2543; J2590; J2765; J3010; J3475; J7120; J7121; P9016

== ENCOUNTER 2019-04-10 17:13 | Emergency (ER) | payer OTHER ==
--- NOTE | 2019-04-10 17:20 | Event Note ---
ED Screening Note ED Screening Note: abd pain known choley disease while preg also rlq pain no n/v/d/constipation Dr [facility] [place] March 26 not breast feeding This initial assessment/diagnostic orders/clinical plan/treatment(s) is/are subject to change based on patients health status, clinical progression and re- assessment by fellow clinical providers in the ED. Further treatment and workup at subsequent clinical providers discretion. Patient/guardian urged not to elope from the ED as their condition may be serious if not clinically assessed and managed. Initial orders include: labs ua
[2019-04-10 19:00] LABS: Bilirubin,Urine NEG (Negative); Blood,Urine LG (Negative); Color,Urine Yellow (Yellow); Mucus,Urine 2+ /HPF; Urobilinogen,Urine < 2.0 mg/dL (<2.0)
[2019-04-10 19:04] LABS: RBC,Urine > 182.0 /HPF (0.0-6.0)
[2019-04-10 19:19] LABS: Hematocrit 37.8 % (30.3-42.9); Hemoglobin 12.4 gm/dl (10.1-14.3); Mean Corpuscular HGB Conc 33 % (30-34); Mean Corpuscular Volume 78 fl (79-97); Platelet Count 456 K/mm3 (140-440); Red Blood Count 4.88 M/mm3 (3.65-5.03); Red Cell Distribution Width 18.6 % (13.2-15.2)
[2019-04-10 19:40] LABS: Alanine Aminotransferase 12 units/L (7-56); Albumin 4.2 g/dL (3.9-5); BUN/Creatinine Ratio 22; Blood Urea Nitrogen 13 mg/dL (7-17); Calcium 9.4 mg/dL (8.4-10.2); Hemolysis Index 34
[2019-04-10 20:20] VITALS: BP 135/93
[2019-04-10] MEDS ORDERED: PERCOCET 5/325 PO ONE (20:37)
[2019-04-10] MEDS ORDERED: MACROBID PO ONE (20:37)
--- NOTE | 2019-04-10 20:49 | Emergency Department Report ---
ED Abdominal Pain HPI - General Chief Complaint: Abdominal Pain Stated Complaint: C SECTION SCAR POSS INFECTION Time Seen by Provider: 04/10/19 17:18 Source: patient Mode of arrival: Ambulatory Limitations: No Limitations - History of Present Illness Initial Comments: Patient is a 24-year-old female who is status post on 03/26/2019. Patient was sent in secondary to several days of progressively worsening lower abdominal pain. Patient denies any dysuria or worsening vaginal bleeding. Patient states that it's a crampy sensation is 6 out of 10 in severity. Patient states it's on the right side of her scar. There is no wound dehiscence or bleeding from the scar or foul odor. Patient also has a known history of cholelithiasis and occasionally will get some sharp crampy right upper quadrant pains with this pain is not constant. Patient states the lower abdominal pain is constant. Severity scale (0 -10): 6 - Related Data Home Medications Medication Instructions Recorded Confirmed Last Taken Tablet 1 tab PO DAILY 12/25/15 03/27/19 03/25/19 Previous Rx's Medication Instructions Recorded Last Taken Type Ferrous Sulfate [Feosol 325 MG tab] 325 mg PO BID #60 tablet 06/22/17 03/25/19 Rx Ibuprofen [Motrin 600 MG tab] 600 mg PO Q6HR #30 tablet 06/22/17 Unknown Rx Vit-Fe Fumar-FA [ 1 each PO QDAY #30 tablet 06/22/17 03/25/19 Rx Vitamin] Ferrous Sulfate [Feosol 325 MG tab] 325 mg PO BID #60 tablet 03/29/19 Unknown Rx Ibuprofen [Motrin 800 MG tab] 800 mg PO Q6H PRN #30 tablet 03/29/19 Unknown Rx Labetalol [Labetalol 100mg TAB] 100 mg PO BID #60 tablet 03/29/19 Unknown Rx Vit-Fe Fumar-FA [ 1 each PO QDAY #30 tablet 03/29/19 Unknown Rx Vitamin] oxyCODONE /ACETAMINOPHEN [Percocet 1 tab PO Q6H PRN #30 tablet 03/29/19 Unknown Rx 5/325 mg] Labetalol [Labetalol 200mg TAB] 200 mg PO BID #60 tablet 03/30/19 Unknown Rx Nitrofurantoin [place]/M-Cryst 100 mg PO Q12HR #14 capsule 04/10/19 Unknown Rx [Macrobid CAP] oxyCODONE /ACETAMINOPHEN [Percocet 1 tab PO Q6HR PRN #10 tablet 04/10/19 Unknown Rx 5/325] Allergies Allergy/AdvReac Type Severity Reaction Status Date / Time No Known Allergies Allergy Verified 04/10/19 17:15 ED Review of Systems ROS: Stated complaint: C SECTION SCAR POSS INFECTION Other details as noted in HPI Comment: All other systems reviewed and negative ED Past Medical Hx - Past Medical History Previous Medical History?: No Hx Hypertension: No Hx Congestive Heart Failure: No Hx Diabetes: No Hx Deep Vein Thrombosis: No Hx Renal Disease: No Hx Sickle Cell Disease: No Hx Seizures: No Hx Asthma: No Hx COPD: No Hx HIV: No - Surgical History Past Surgical History?: No - Social History Smoking Status: Never Smoker - Medications Home Medications: Home Medications Medication Instructions Recorded Confirmed Last Taken Type Tablet 1 tab PO DAILY 12/25/15 03/27/19 03/25/19 History Ferrous Sulfate [Feosol 325 MG tab] 325 mg PO BID #60 tablet 06/22/17 03/27/19 03/25/19 Rx Ibuprofen [Motrin 600 MG tab] 600 mg PO Q6HR #30 tablet 06/22/17 03/27/19 Unknown Rx Vit-Fe Fumar-FA [ 1 each PO QDAY #30 tablet 06/22/17 03/27/19 03/25/19 Rx Vitamin] Ferrous Sulfate [Feosol 325 MG tab] 325 mg PO BID #60 tablet 03/29/19 Unknown Rx Ibuprofen [Motrin 800 MG tab] 800 mg PO Q6H PRN #30 tablet 03/29/19 Unknown Rx Labetalol [Labetalol 100mg TAB] 100 mg PO BID #60 tablet 03/29/19 Unknown Rx Vit-Fe Fumar-FA [ 1 each PO QDAY #30 tablet 03/29/19 Unknown Rx Vitamin] oxyCODONE /ACETAMINOPHEN [Percocet 1 tab PO Q6H PRN #30 tablet 03/29/19 Unknown Rx 5/325 mg] Labetalol [Labetalol 200mg TAB] 200 mg PO BID #60 tablet 03/30/19 Unknown Rx Nitrofurantoin [place]/M-Cryst 100 mg PO Q12HR #14 capsule 04/10/19 Unknown Rx [Macrobid CAP] oxyCODONE /ACETAMINOPHEN [Percocet 1 tab PO Q6HR PRN #10 tablet 04/10/19 Unknown Rx 5/325] ED Physical Exam - General Limitations: No Limitations General appearance: alert, in no apparent distress - Head Head exam: Present: atraumatic, normocephalic - Eye Eye exam: Present: normal appearance - ENT ENT exam: Present: mucous membranes moist - Neck Neck exam: Present: normal inspection - Respiratory Respiratory exam: Present: normal lung sounds bilaterally. Absent: respiratory distress, wheezes, rales - Cardiovascular Cardiovascular Exam: Present: normal rhythm, tachycardia. Absent: systolic murmur, diastolic murmur, rubs, gallop - GI/Abdominal GI/Abdominal exam: Present: soft, tenderness (suprapubic right lower quadrant), normal bowel sounds, other (patient with a healing midline scar with routine healing). Absent: distended, guarding, rebound, rigid - Extremities Exam Extremities exam: Present: normal inspection - Back Exam Back exam: Present: normal inspection - Neurological Exam Neurological exam: Present: alert, oriented X3 - Psychiatric Psychiatric exam: Present: normal affect, normal mood - Skin Skin exam: Present: warm, dry, intact, normal color. Absent: rash ED Course Vital Signs 04/10/19 04/10/19 04/10/19 17:41 20:17 20:42 Temperature 98.3 F 98.3 F Pulse Rate 122 H 93 H Respiratory 16 16 16 Rate Blood Pressure 131/96 Blood Pressure 135/93 [Left] O2 Sat by Pulse 96 98 Oximetry ED Medical Decision Making - Lab Data Result diagrams: 04/10/19 19:09 04/10/19 19:09 Lab Results 04/10/19 04/10/19 04/10/19 Range/Units 18:35 19:09 19:09 WBC 8.3 (4.5-11.0) K/mm3 RBC 4.88 (3.65-5.03) M/mm3 Hgb 12.4 (10.1-14.3) gm/dl Hct 37.8 (30.3-42.9) % MCV 78 L (79-97) fl MCH 25 L (28-32) pg MCHC 33 (30-34) % RDW 18.6 H (13.2-15.2) % Plt Count 456 H (140-440) K/mm3 Sodium 141 (137-145) mmol/L Potassium 4.1 (3.6-5.0) mmol/L Chloride 99.4 (98-107) mmol/L Carbon Dioxide 25 (22-30) mmol/L Anion Gap 21 mmol/L BUN 13 (7-17) mg/dL Creatinine 0.6 L (0.7-1.2) mg/dL Estimated GFR > 60 ml/min BUN/Creatinine Ratio 22 % Glucose 101 H (65-100) mg/dL Calcium 9.4 (8.4-10.2) mg/dL Total Bilirubin 0.40 (0.1-1.2) mg/dL AST 22 (5-40) units/L ALT 12 (7-56) units/L Alkaline Phosphatase 156 H (35-129) units/L Total Protein 8.0 (6.3-8.2) g/dL Albumin 4.2 (3.9-5) g/dL Albumin/Globulin Ratio 1.1 % Lipase 40 (13-60) units/L Urine Color Yellow (Yellow) Urine Turbidity Cloudy (Clear) Urine pH 5.0 (5.0-7.0) Ur Specific [place] 1.014 (1.003-1.030) Urine Protein 30 mg/dl (Negative) mg/dL Urine Glucose (UA) Neg (Negative) mg/dL Urine Ketones Neg (Negative) mg/dL Urine Blood Lg (Negative) Urine Nitrite Neg (Negative) Urine Bilirubin Neg (Negative) Urine Urobilinogen < 2.0 (<2.0) mg/dL Ur Leukocyte Esterase Lg (Negative) Urine WBC (Auto) 162.0 H (0.0-6.0) /HPF Urine RBC (Auto) > 182.0 (0.0-6.0) /HPF U Epithel Cells (Auto) 1.0 (0-13.0) /HPF Urine Mucus 2+ /HPF - Medical Decision Making Patient's urinalysis is consistent with a urinary tract infection. Patient has a normal white count and no fever. Not believe the patient has a pyelonephritis. Patient started on Macrobid give meds for symptomatic relief will be discharged home. Also discussed low-fat diet since the patient has a history of gallstones. Critical care attestation.: If time is entered above; I have spent that time in minutes in the direct care of this critically ill patient, excluding procedure time. ED Disposition Clinical Impression: Acute cystitis Qualifiers: Hematuria presence: with hematuria Qualified Code(s): N30.01 - Acute cystitis with hematuria Disposition: TO HOME OR SELFCARE Is pt being admited?: No Does the pt Need Aspirin: No Condition: Stable Instructions: Urinary Tract Infection in Women (ED) Additional Instructions: Please follow-up with your [employer] Time of Disposition: 20:52
== END 2019-04-10 21:40 | disposition home or self-care (01) ==
LOC: ED 17:13
DX: N30.00 Acute cystitis without hematuria (principal); Z79.899 Other long term (current) drug therapy
CPT/HCPCS: 36415; 80053; 81001; 83690; 85027; 99283

== ENCOUNTER 2020-11-08 22:15 | Inpatient (IN) | payer OTHER ==
[2020-11-08] MEDS ORDERED: AMPICILLIN/NS 2 GM/100 ML 2 GM/100 ML BAG IV ONE (23:00)
[2020-11-08] MEDS ORDERED: TERBUTALINE 1 MG/1 ML INJ SUB-Q PRN (23:00)
[2020-11-08] MEDS ORDERED: fentaNYL 100 MCG/2 ML INJ IV PRN (23:00)
[2020-11-08] MEDS ORDERED: LIDOCAINE (2%) 20 MG/1 ML VIAL 20 ML MDV INFILTRATI ONE (23:00)
[2020-11-08] MEDS ORDERED: OXYTOCIN DRIP 30 UNITS/500 ML BAG IV SCH ×2 (23:00)
[2020-11-08] MEDS ORDERED: MINERAL OIL 30 ML ORAL LIQD PO PRN (23:00)
[2020-11-08] MEDS ORDERED: ePHEDrine SULFATE 50 MG/1 ML INJ IV PRN (23:00)
[2020-11-08] MEDS ORDERED: ONDANSETRON 4 MG/2 ML INJ IV PRN (23:00)
[2020-11-08 23:49] LABS: Hematocrit 34.4 % (30.3-42.9); Hemoglobin 11.3 gm/dl (10.1-14.3); Mean Corpuscular HGB Conc 33 % (30-34); Mean Corpuscular Volume 73 fl (79-97); Platelet Count 203 K/mm3 (140-440); Red Cell Distribution Width 16.4 % (13.2-15.2)
[2020-11-08] MEDS: LACTATED RINGERS 1,000 ML IV SCH (23:51)
--- NOTE | 2020-11-09 00:23 | History and Physical Report ---
History of Present Illness Date of examination: 11/09/20 Date of admission: 11/09/20 Chief complaint: contractions History of present illness: 25 yo at 41w4d by stated by with PNC at [facility] (no records today) c/b hx of prior c/s x 1 for placenta abruption (2018), hx transfusion x 1 (2018), hx severe preeclampsia (2019), Class I Obesity presenting with contractions x 1 day. Otherwise reports normal and uncomplicated course. Past History Past Medical History: no pertinent history Past Surgical History: section (x1) [employer]ENTATIVE History: abnormal PAP smear Family/Genetic History: none Social history: no significant social history - Obstetrical History : 4 Para: 3 Hx # Term Pregnancies: 3 Number of Living Children: 3 Medications and Allergies Allergies Allergy/AdvReac Type Severity Reaction Status Date / Time No Known Allergies Allergy Verified 04/10/19 17:15 Home Medications Medication Instructions Recorded Confirmed Last Taken Type Tablet 1 tab PO DAILY 12/25/15 03/27/19 03/25/19 History Ferrous Sulfate [Feosol 325 MG tab] 325 mg PO BID #60 tablet 06/22/17 03/27/19 03/25/19 Rx Ibuprofen [Motrin 600 MG tab] 600 mg PO Q6HR #30 tablet 06/22/17 03/27/19 Unknown Rx Vit-Fe Fumar-FA [ 1 each PO QDAY #30 tablet 06/22/17 03/27/19 03/25/19 Rx Vitamin] Ferrous Sulfate [Feosol 325 MG tab] 325 mg PO BID #60 tablet 03/29/19 Unknown Rx Ibuprofen [Motrin 800 MG tab] 800 mg PO Q6H PRN #30 tablet 03/29/19 Unknown Rx Vit-Fe Fumar-FA [ 1 each PO QDAY #30 tablet 03/29/19 Unknown Rx Vitamin] labetaloL [Labetalol 100mg TAB] 100 mg PO BID #60 tablet 03/29/19 Unknown Rx oxyCODONE /ACETAMINOPHEN [Percocet 1 tab PO Q6H PRN #30 tablet 03/29/19 Unknown Rx 5/325 mg] labetaloL [Labetalol 200mg TAB] 200 mg PO BID #60 tablet 03/30/19 Unknown Rx Nitrofurantoin [place]/M-Cryst 100 mg PO Q12HR #14 capsule 04/10/19 Unknown Rx [Macrobid CAP] oxyCODONE /ACETAMINOPHEN [Percocet 1 tab PO Q6HR PRN #10 tablet 04/10/19 Unknown Rx 5/325] Active Meds: Active Medications Ephedrine Sulfate (Ephedrine Sulfate 50 Mg/1 Ml Inj) 10 mg IV Q2M PRN PRN Reason: Hypotension Fentanyl (Fentanyl 100 Mcg/2 Ml Inj) 100 mcg IV Q2H PRN PRN Reason: Pain,Severe (7-10) LABOR PAIN Oxytocin/Sodium Chloride (Pitocin/Ns 30 Unit/500ml) 30 units in 500 mls @ 2 mls/hr IV TITR ALONDRA; Protocol Lactated Ringer's (Lactated Ringers) 1,000 mls @ 125 mls/hr IV DIRECT ALONDRA Last Admin: 11/08/20 23:51 Dose: 125 mls/hr Documented by: Oxytocin/Sodium Chloride (Pitocin/Ns 30 Unit/500ml) 30 units in 500 mls @ 40 mls/hr IV TITR ALONDRA; Protocol Mineral Oil (Mineral Oil 30 Ml Oral Liqd) 30 ml PO QHS PRN PRN Reason: Constipation Ondansetron HCl (Ondansetron 4 Mg/2 Ml Inj) 4 mg IV Q8H PRN PRN Reason: Nausea And Vomiting Terbutaline Sulfate (Terbutaline 1 Mg/1 Ml Inj) 0.25 mg SUB-Q ONCE PRN PRN Reason: Hyperstimulation/Hypertonicity Review of Systems All systems: negative (expect HPI) - Vital Signs Vital signs: Vital Signs Pulse Pulse Ox 112 H 98 11/08/20 22:41 11/08/20 22:41 Temp Pulse Resp BP Pulse Ox 98.6 F 113 H 18 124/91 95 11/08/20 22:43 11/09/20 00:16 11/08/20 22:43 11/08/20 23:29 11/09/20 00:16 - Physical Exam Abdomen: Positive: normal appearance, normal bowel sounds, other (gravid) Genitourinary (Female): Positive: normal external genitalia Uterus: Positive: enlarged - Obstetrical FHR: category 1 Uterine Contraction Monitor Mode: External Cervical Dilatation: 6 Cervical Effacement Percentage: 90 station: 0 Uterine Contraction Frequency (min): 3 Uterine Contraction Pattern: Regular Results Result Diagrams: 11/08/20 23:15 Abnormal lab results 11/08/20 Range/Units 23:15 MCV 73 L (79-97) fl MCH 24 L (28-32) pg RDW 16.4 H (13.2-15.2) % All other labs normal. Assessment and Plan - Patient Problems (1) H/O: Current Visit: Yes Status: Acute Plan to address problem: H/o C/s x 1 for placental abruption/SPE in active labor --Expectant management, anticipate --Patient understands risk associated with TOLAC and understands the possibly of emergent c/s as indicated for maternal/ indications --Augment with low dose pitocin if indication --Pain control, ok for epidural --Given no records today, will obtain all labs. Attempt to get labs in AM. --Given GBS unknown, proceed with Amp
[2020-11-09] MEDS ORDERED: NALOXONE 2 MG/2 ML INJ IV PRN (00:44)
[2020-11-09] MEDS ORDERED: ePHEDrine SULFATE 50 MG/1 ML INJ IV PRN (00:44)
--- NOTE | 2020-11-09 00:46 | Anesthesia Consultation ---
Anesthesia Consult and Med Hx Date of service: 11/09/20 - Airway Anesthetic Teeth Evaluation: Chipped ROM Head & Neck: Adequate Mental/Hyoid Distance: Adequate Mallampati Class: Class II Intubation Access Assessment: Probably Good - Pulmonary Exam CTA: Yes - Cardiac Exam Cardiac Exam: RRR - Pre-Operative Health Status ASA Pre-Surgery Classification: ASA3 Proposed Anesthetic Plan: Epidural - Pulmonary Hx Asthma: No COPD: No Hx Pneumonia: No - Cardiovascular System Hx Hypertension: No - Central Nervous System Hx Seizures: No Hx Psychiatric Problems: No - Endocrine Hx Renal Disease: No Hx End Stage Renal Disease: No Hx Hypothyroidism: No Hx Hyperthyroidism: No - Hematic Hx Anemia: No Hx Sickle Cell Disease: No - Other Systems Hx Alcohol Use: No - Additional Comments Anesthesia Medical History Comments: Tolac
--- NOTE | 2020-11-09 00:49 | Progress Note ---
Labor Epidural - Labor Epidural Start Time: 00:29 Stop Time: 00:39 Performed by:: MECHELLE GARZA Procedure: Patient is requesting epidural for labor pain. H&P, and labs reviewed. Procedure explained, questions answered, consent obtained. Patient in sitting position with blood pressure cuff and pulse ox on and working. Timeout performed immediately before start of procedure. Sterile betadine prep/drape. 3 mL 1% lidocaine skin wheal at L[3]-L[4]. 18-gauge Hustead epidural needle advanced to [id number] with saline at [7] cm. 27-gauge spinal needle advanced until clear, free-flowing CSF. Intrathecal dexmedetomidine [5] mcg administered and needle removed. Epidural catheter advanced to [12] cm, negative aspiration for blood and csf, negative test dose 3 ml 1.5% lidocaine with epinephrine. Sterile steri-strips and tegaderm applied, followed by tape reinforcement. Patient tolerated procedure well. Leslie Cloud SRNA
[2020-11-09] MEDS ORDERED: fentaNYL-BUPIV 2 MCG/ML-0.125% 200 MCG/100 ML BAG EPIDURAL SCH (01:00)
[2020-11-09] MEDS: LACTATED RINGERS 1,000 ML IV SCH (01:19)
[2020-11-09] MEDS ORDERED: PROMETHAZINE 25 MG TAB PO PRN (01:31)
[2020-11-09] MEDS ORDERED: diphenhydrAMINE 25 MG CAP PO PRN (01:31)
[2020-11-09] MEDS ORDERED: oxyCODONE /ACETAMINOPHEN 5-325MG TAB PO PRN (01:31)
[2020-11-09] MEDS ORDERED: LANOLIN/ZINC/DIMETHICONE (LANSINOH) 7 GM TP PRN (01:31)
[2020-11-09] MEDS ORDERED: ONDANSETRON 4 MG/2 ML INJ IV PRN (01:31)
[2020-11-09] MEDS ORDERED: WITCH HAZEL/ GLYCERIN PAD TP PRN (01:31)
[2020-11-09] MEDS ORDERED: ACETAMINOPHEN 325 MG TAB PO PRN (01:31)
[2020-11-09] MEDS ORDERED: PROMETHAZINE 25 MG RECT SUPP PR PRN (01:31)
[2020-11-09] MEDS ORDERED: MAGNESIUM HYDROXIDE (MOM) ORAL LIQD UDC PO PRN (01:31)
[2020-11-09] MEDS ORDERED: HYDROCORTISONE 25 MG RECTAL SUPP PR PRN (01:31)
--- NOTE | 2020-11-09 01:35 | Procedure Note ---
OB Delivery Note - Delivery Date of Delivery: 11/09/20 Surgeon: JAMES PEREZ JR Estimated blood loss: 300cc - Vaginal Delivery position: OA Intrapartum events: none Delivery induction: none Delivery monitor: external FHT Route of delivery: Delivery placenta: spontaneous Episiotomy: none Delivery laceration: 2nd degree Delivery repair: vicryl Anesthesia: epidural Delivery comments: Spontaneous vaginal delivery of male infant without augmentation. Placed on mother for bonding after delivery. Apgars 8/9. 3340 g. 19.5 inches. - Infant A at 1 minute: 8 at 5 minutes: 9 Gender: Male
[2020-11-09 01:39] LABS: Basophils % (Auto) 0.2 % (0.0-1.8); Eosinophils % (Auto) 0.3 % (0.0-4.3); Hematocrit 35.2 % (30.3-42.9); Lymphocytes # (Auto) 2.6 K/mm3 (1.2-5.4); Lymphocytes % (Auto) 21.8 % (13.4-35.0); Mean Corpuscular HGB Conc 31 % (30-34); Mean Corpuscular Volume 75 fl (79-97); Monocytes # (Auto) 0.8 K/mm3 (0.0-0.8); Monocytes % (Auto) 6.4 % (0.0-7.3); Platelet Count 197 K/mm3 (140-440); Red Blood Count 4.71 M/mm3 (3.65-5.03); Red Cell Distribution Width 16.3 % (13.2-15.2)
[2020-11-09 01:58] LABS: Albumin 3.5 g/dL (3.9-5); Blood Urea Nitrogen 7 mg/dL (7-17); Calcium 9.4 mg/dL (8.4-10.2); Hemolysis Index 0
[2020-11-09] MEDS ORDERED: OXYTOCIN DRIP 30 UNITS/500 ML BAG IV SCH (02:00)
[2020-11-09 02:01] LABS: Alanine Aminotransferase < 5 units/L (7-56); BUN/Creatinine Ratio 18
[2020-11-09] MEDS ORDERED: BENZOCAINE/MENTHOL 20/0.5% TOP SPRAY 56 GM TP PRN (04:26)
[2020-11-09] MEDS: SENNOSIDES/DOCUSATE SODIUM 8.6/50 MG TAB PO SCH ×3 (04:29→22:41)
[2020-11-09] MEDS: IBUPROFEN 600 MG TAB PO SCH ×5 (04:29→17:49)
[2020-11-09] MEDS: PRENATAL VIT27-FE FUMARATE-FOLIC ACID VIT TAB PO SCH (10:40)
[2020-11-09] MEDS: DOCUSATE SODIUM 100 MG CAP PO SCH ×2 (10:40→22:42)
[2020-11-09 13:45] LABS: Hematocrit 31.4 % (30.3-42.9)
[2020-11-10] MEDS: IBUPROFEN 600 MG TAB PO SCH ×5 (01:32→23:34)
[2020-11-10] MEDS ORDERED: DIPHtheria,PERTUSSIS(ACELL),TETANUS VACCINE/PF 0.5 ML VIAL IM ONE (06:00)
--- NOTE | 2020-11-10 09:36 | Post Anesthesia Evaluation ---
- Post Anesthesia Evaluation Patient Participated: Yes Airway Patent: Yes Stable Respiratory Function: Yes Nausea/Vomiting: No Temp > 96.8F: Yes Pain Manageable: Yes Adequeate Hydration: Yes Anesthesia Complications: No Block Receding Appropriately: Yes
[2020-11-10] MEDS: SENNOSIDES/DOCUSATE SODIUM 8.6/50 MG TAB PO SCH ×2 (12:48→23:34)
[2020-11-10] MEDS: PRENATAL VIT27-FE FUMARATE-FOLIC ACID VIT TAB PO SCH (12:50)
--- NOTE | 2020-11-10 15:17 | Progress Note ---
Assessment and Plan POD # 1 A: S/P Asymptomatic anemia Covid pos P: Continue routine pp care Encourage ambulation and hydration D/C home tomm if stable Subjective - Subjective Date of service: 11/10/20 Principal diagnosis: s/p Patient reports: appetite normal, voiding normally, pain well controlled, ambulating normally [place]: doing well, bottle feeding Objective - Vital Signs Latest vital signs: Vital Signs Temp Pulse Resp BP BP Pulse Ox 11/10/20 08:45 98.1 F 88 18 115/69 96 11/10/20 06:00 18 11/10/20 04:15 97.7 F 91 H 18 98/61 96 11/10/20 02:32 18 11/10/20 01:32 18 11/09/20 17:39 97.8 F 94 H 18 111/74 97 Intake and Output 11/10/20 11/10/20 11/10/20 06:59 14:59 22:59 Intake Total 720 Balance 720 Intake: Oral 240 Intake, Free Water 480 Other: Total, Intake Amount 120 # Voids Void 1 - Exam Breasts: Present: normal Abdomen: Present: normal appearance, soft, normal bowel sounds Vulva: both: normal Uterus: Present: normal, firm, fundal height below umbilicus Extremities: Present: normal
--- NOTE | 2020-11-10 16:14 | Discharge Summary ---
Providers - Providers Date of Admission: 11/09/20 01:41 Date of discharge: 11/11/20 Attending physician: JAMES PEREZ JR, MD Primary care physician: JAMES PEREZ JR, MD Hospitalization Reason for admission: active labor Delivery: Episiotomy: none Laceration: 2nd degree Incision: normal, dry, intact Other procedures: none complications: none Discharge diagnosis: IUP at term delivered baby: male Hospital course: Pt was admitted to [facility] in active labor. Pt had a and no pp complications. See H&P, delivery summary, and pp notes. Condition at discharge: Stable Disposition: - TO HOME OR SELFCARE Plan - Discharge Medications Prescriptions: Ferrous Sulfate [Feosol 325 MG tab] 325 mg PO BID #60 tablet Ibuprofen [Motrin 600 MG tab] 600 mg PO Q6HR #30 tablet - Provider Discharge Summary Activity: routine, no sex for 6 weeks, no heavy lifting 4 weeks, no strenuous exercise Diet: routine Instructions: routine Additional instructions: [] Smoking cessation referral if applicable(refer to patient education folder for contact #) [] Refer to [facility] Booklet Call your doctor immediately for: * Fever > 100.5 * Heavy vaginal bleeding ( >1 pad per hour) * Severe persistent headache * Shortness of breath * Reddened, hot, painful area to leg or breast * Drainage or odor from incision. * Keep incision clean and dry at all times and follow doctor's instructions regarding bathing/showering - Follow up plan Follow up: JAMES PEREZ JR, MD [Primary Care Provider] - 6 Weeks
[2020-11-10] MEDS: DOCUSATE SODIUM 100 MG CAP PO SCH (23:34)
[2020-11-11] MEDS: IBUPROFEN 600 MG TAB PO SCH ×2 (05:28→11:30)
[2020-11-11] MEDS: DOCUSATE SODIUM 100 MG CAP PO SCH (11:30)
[2020-11-11 17:55] VITALS: BP 107/69
== END 2020-11-11 16:20 | disposition home or self-care (01) | DRG 774 ==
LOC: TRG 22:15 → APU 22:16 → LD 23:42 → TRG 11-09 01:41 → OB 11-09 03:43
PROVIDERS: ADMIT Obstetrics & Gynecology; ATTEND Obstetrics & Gynecology
PROC: 10E0XZZ Delivery of Products of Conception, External Approach (ICD-10-PCS; principal; 2020-11-09)
PROC: 0KQM0ZZ Repair Perineum Muscle, Open Approach (ICD-10-PCS; 2020-11-09)
PROC: 3E0R3BZ Introduction of Anesthetic Agent into Spinal Canal, Percutaneous Approach (ICD-10-PCS; 2020-11-09)
PROC: 00HU33Z Insertion of Infusion Device into Spinal Canal, Percutaneous Approach (ICD-10-PCS; 2020-11-09)
PROC: 3E0234Z Introduction of Serum, Toxoid and Vaccine into Muscle, Percutaneous Approach (ICD-10-PCS; 2020-11-10)
DX: O99.214 Obesity complicating childbirth (principal); O98.52 Other viral diseases complicating childbirth; O70.1 Second degree perineal laceration during delivery; U07.1 COVID-19; O99.02 Anemia complicating childbirth; D64.9 Anemia, unspecified; Z20.822 Contact with and (suspected) exposure to COVID-19; Z3A.41 41 weeks gestation of pregnancy; Z37.0 Single live birth; Z79.899 Other long term (current) drug therapy; Z79.891 Long term (current) use of opiate analgesic
CPT/HCPCS: 36415; 80053; 85014; 85018; 85025; 85027; 86592; 86762; 86850; 86900; 86901; 87806; 90471; 90715; G0378; J0290; J2590; J7120; U0003